=== PATIENT | female | born 1995 | race Two or more races ===

== ENCOUNTER 2018-11-13 14:04 | Outpatient (CLI) | payer OTHER ==
[~2018-11-13 14:04] MED LIST: CIPROFLOXACIN250 MG PO; PHENAZOPYRIDIN100 MG ORAL
--- NOTE | 2018-11-14 02:00 | Consultation ---
DATE OF CONSULTATION: 11/13/2018 GASTROLOGY CONSULTATION CONSULTING PHYSICIAN: Jae Cast M.D. CHIEF COMPLAINT: Abdominal pain, rectal bleeding, and severe constipation. HISTORY OF PRESENT ILLNESS: This is a 22-year-old female with numerous medical problems, which I will dictate in a second, who was referred to us for evaluation of constipation. Apparently, she has been dealing with this from teenage years. She has tried [id number] medications including Dulcolax, magnesium citrate, senna, Preparation H with some help and now none of them working. She has had endoscopies before, few of them, the last one was aim-oab-m-half years ago, both endoscopy and colonoscopy and she was just diagnosed with hemorrhoids. PAST MEDICAL HISTORY: 1. History of UTI. 2. History of pyelonephritis. 3. History of chronic constipation. 4. History of bulimia. 5. Hemorrhoids. PAST SURGICAL HISTORY: Appendectomy. MEDICATIONS: See medication reconciliation list. ALLERGIES: Shellfish, gives her hives. FAMILY HISTORY: No family history of GI malignancies. SOCIAL HISTORY: The patient denies any tobacco, alcohol, or IV drug abuse. REVIEW OF SYSTEMS: A 10-point review of systems was performed and pertinent positives in HPI. PHYSICAL EXAMINATION: GENERAL: This is a well-developed female, in no acute distress. HEENT: Normocephalic and atraumatic. Sclerae anicteric. NECK: Supple. No evidence of obvious lymphadenopathy. CARDIOVASCULAR: Regular rhythm. Plus S1 and S2. No obvious murmur. LUNGS: Clear to auscultation bilaterally. ABDOMEN: Positive bowel sounds. Soft and nontender. No rebound. No guarding. No peritoneal sign. EXTREMITIES: No cyanosis. No clubbing. No edema. ASSESSMENT: A 22-year-old female with chronic constipation and associated internal hemorrhoids. PLAN: Treat the constipation with a trial of . The patient was given a sample and prescription. The patient also was given prescription for Anusol HC suppositories per rectum and instruction on how to use this. The patient was told to come back if the above combination fails. Jaechika Cast M.D. DR: FRANCINE JOB#: [id number] CC:
== END 2018-11-13 15:05 | disposition home or self-care (01) ==
LOC: PAN 14:04
DX: R10.9 Unspecified abdominal pain (principal); K62.5 Hemorrhage of anus and rectum; K59.00 Constipation, unspecified; Z90.89 Acquired absence of other organs; Z91.013 Allergy to seafood; K64.8 Other hemorrhoids